=== PATIENT | female | born 1960 | race Caucasian/White ===

== ENCOUNTER → 2016-03-12 | Outpatient (CLI) | payer OTHER ==
[~2016-03-12] MED LIST: CETI10TA84 PO; EFF/375 PO; ETOD300C20 PO; GABA-113 PO; LEVO50TA6 PO; LEVO75TA PO; METO25TA3 PO; TAMO20TA47 PO; TIZA4CAP PO
== END | disposition home or self-care (01) ==
LOC: C.LAB1850 13:24
DX: M85.80 Other specified disorders of bone density and structure, unspecified site (principal)

== ENCOUNTER → 2016-03-26 | Outpatient (CLI) | payer OTHER ==
--- NOTE | 2016-03-26 16:45 | MAMMOGRAPHY REPORT ---
BILATERAL DIGITAL SCREENING MAMMOGRAM TOMOSYNTHESIS WITH CAD: 03/26/2016 CLINICAL HISTORY: Asymptomatic. Personal history of breast cancer. TECHNIQUE: Breast tomosynthesis in addition to standard 2D mammography was performed. Current study was also evaluated with a Computer Aided Detection (CAD) system. COMPARISON: Comparison is made to exams dated: 03/25/2015 mammogram, 03/07/2013 mammogram, 03/08/2014 m ammogram, 03/06/2012 mammogram, 09/03/2011 mammogram, and 08/28/2010 mammogram - [facility]. BREAST COMPOSITION: There are scattered areas of fibroglandular density in both breasts. FINDINGS: No suspicious masses, calcifications, or areas of architectural distortion are noted in e ither breast. There has been no significant interval change compared to prior exams. There are stab le postsurgical changes in the right upper outer quadrant from prior lumpectomy. IMPRESSION: ACR BI-RADS CATEGORY 2: BENIGN There is no mammographic evidence of malignancy. A 1 year screening mammogram is recommended. The p atient will receive written notification of the results. Approximately 10% of breast cancers are not detected with mammography. A negative mammographic repor t should not delay biopsy if a clinically suggestive mass is present. Maddie Rehman M.D. ah/:03/26/2016 16:19:48 Director Communications: Yessi RÍOS)(M), [facility] letter sent: Normal 1/2 BI-RADS Code: ACR BI-RADS Category 2: Benign
== END | disposition home or self-care (01) ==
LOC: C.MAMM 10:53
PROVIDERS: ATTEND Surgery
DX: Z12.31 Encounter for screening mammogram for malignant neoplasm of breast (principal); Z85.3 Personal history of malignant neoplasm of breast; Z08 Encounter for follow-up examination after completed treatment for malignant neoplasm

== ENCOUNTER → 2016-05-18 | Outpatient (CLI) | payer OTHER ==
[~2016-05-18] MED LIST changes: -TAMO20TA47 PO; +TAMO20TA9 PO
[2016-05-21 20:19] LABS: AMOXICILLIN CLASS 0; AMOXICILLIN IGE <0.10 kU/L; AMPICILLIN CLASS 0; AMPICILLIN IGE <0.10 kU/L
== END | disposition home or self-care (01) ==
LOC: C.LAB1850 10:07
PROVIDERS: ATTEND Internal Medicine Pulmonary Disease
DX: L50.9 Urticaria, unspecified (principal)

== ENCOUNTER → 2016-09-10 | Outpatient (CLI) | payer OTHER ==
[~2016-09-10] MED LIST changes: +TAMO20TA47 PO; -TAMO20TA9 PO
[2016-09-10 10:17] LABS: BLOOD UREA NITROGEN 19 mg/dl (7-18); BUN/CREATININE RATIO 19.9 (10-20); CALCIUM 8.9 mg/dl (8.5-10.1); CARBON DIOXIDE 28 mmol/L (21-32); CHLORIDE 109 mmol/L (98-107); CREATININE 0.97 mg/dl (0.60-1.20); GLUCOSE 96 mg/dl (70-99); MAGNESIUM 2.3 mg/dl (1.8-2.4); SODIUM 143 mmol/L (136-145)
[2016-09-10 10:27] LABS: CHOLESTEROL 162 mg/dl (0-200); CHOLESTEROL/HDL RATIO 2.1; HDL CHOLESTEROL 76 mg/dl; LDL CHOLESTEROL CALCULATED 77 mg/dl; THYROID STIMULATING HORMONE 0.193 uIu/ml (0.300-4.500); TRIGLYCERIDES 44 mg/dl (0-150); VERY LOW DENSITY LIPOPROT CALC 9 mg/dl
== END | disposition home or self-care (01) ==
LOC: C.LAB1850 09:02
DX: Z13.220 Encounter for screening for lipoid disorders (principal); I10 Essential (primary) hypertension; E03.9 Hypothyroidism, unspecified

== ENCOUNTER → 2017-02-02 | Outpatient (CLI) | payer OTHER ==
[~2017-02-02] MED LIST changes: -ETOD300C20 PO; -LEVO75TA PO; -TAMO20TA47 PO; +TAMO20TA9 PO
[2017-02-02 13:59] LABS: INFLUENZA B PCR Neg for Influ B (NEG)
[2017-02-02 14:03] LABS: INFLUENZA A PCR POS for Influ A (NEG)
== END | disposition home or self-care (01) ==
LOC: C.LAB 11:44
DX: R50.9 Fever, unspecified (principal); R05 Cough

== ENCOUNTER → 2017-03-28 | Outpatient (CLI) | payer OTHER ==
--- NOTE | 2017-03-29 12:57 | MAMMOGRAPHY REPORT ---
BILATERAL DIGITAL SCREENING MAMMOGRAM TOMOSYNTHESIS WITH CAD: 03/28/2017 CLINICAL HISTORY: Asymptomatic. Personal history of breast cancer. TECHNIQUE: Breast tomosynthesis in addition to standard 2D mammography was performed. Current study was also evaluated with a Computer Aided Detection (CAD) system. COMPARISON: Comparison is made to exams dated: 03/25/2015 mammogram, 03/08/2014 mammogram, 03/26/2016 ma mmogram, 03/07/2013 mammogram, 03/06/2012 mammogram, and 09/03/2011 mammogram - [facility]ter. BREAST COMPOSITION: There are scattered areas of fibroglandular density in both breasts. FINDINGS: There is stable expected architectural distortion and surgical clips in the upper outer pos terior right breast, at the site of prior lumpectomy. There are minimal vascular calcifications in t he breasts. No suspicious mass, architectural distortion or cluster of suspicious microcalcification s is seen. IMPRESSION: ACR BI-RADS CATEGORY 1: NEGATIVE There is no mammographic evidence of malignancy. A 1 year screening mammogram is recommended. The pa tient will receive written notification of the results. Approximately 10% of breast cancers are not detected with mammography. A negative mammographic report should not delay biopsy if a clinically suggestive mass is present. Rachelle Asif M.D. ay/:03/28/2017 16:30:16 Campus Ambassador: Isa STRATTON(R)(M), [facility] letter sent: Normal 1/2 BI-RADS Code: ACR BI-RADS Category 1: Negative
== END | disposition home or self-care (01) ==
LOC: C.MAMM 11:05
PROVIDERS: ATTEND Internal Medicine Hematology
DX: Z12.31 Encounter for screening mammogram for malignant neoplasm of breast (principal)